=== PATIENT | female | born 2000 | race Caucasian/White ===

== ENCOUNTER 2024-03-31 04:40 | Emergency (ER) | payer MEDICAID, SELFPAY ==
[2024-03-31 04:52] VITALS: BP 139/93; PULSE 89; RESP 14; TEMP 36.8; O2SAT 100; BMI 22.6
--- NOTE | 2024-03-31 05:13 | [facility].EDGENADL ---
Discharge Plan Activity Restrictions/Add. Instructions Additional Instructions/Restrictions: Please follow-up with your primary care provider. Please return to the emergency department if you develop any new or worsening symptoms or become concerned for your health. Clinical Impressions Clinical Impression: Abdominal pain Qualifiers: Abdominal location: lower abdomen, unspecified Qualified Code(s): R10.30 - Lower abdominal pain, unspecified Print Language Print Language: Czech Discharge ED Provider: [place] French General Adult HPI General Chief complaint: PAIN Stated complaint: AO 0340 abd pain Time Seen by Provider: 03/31/24 04:50 Mode of Arrival: Ambulatory Source of Information: Patient Limitations: No Limitations Description of Symptoms (Recalled from ER Triage Doc. by RN): Patient complains of lower abdominal pain after pulling a resident up in bed. States pain is sharp and started around 3:40am. Patient is 18 weeks and is primairly concerned with the . History of Present Illness HPI narrative: 23-year-old female, currently 18 months with her second , history of type 2 diabetes, normal to this point presents for abdominal pain. 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 She denies any vaginal bleeding or crampy abdominal pain, reports it is sharp and worse with coughing or twisting. She denies any significant trauma to the abdomen, just that she was straining when it happened. [facility] Disclaimer: The information contained in this section may have been updated after the patient was seen, as this information can be updated by other users. Social History Smoking Status: Never smoker alcohol intake: never current occupational status: employed ROS Obtained: Yes All systems reviewed & no additional complaints except as documented Physical Exam General General appearance: alert and in no apparent distress Head Head exam: atraumatic and normocephalic Eye Eye exam: Present normal appearance, PERRL and EOMI ENT ENT exam: Present normal oropharynx and normal external ear exam Neck Neck exam: Present normal inspection and full ROM Chest Chest inspection: Present normal inspection and symmetric chest wall rise; Absent tenderness Respiratory Respiratory exam: Present normal lung sounds bilaterally; Absent respiratory distress Cardiovascular Cardiovascular exam: Present regular rate and normal rhythm Abdominal Exam Abdominal exam: Present soft; Absent distention, tenderness or guarding Comment: Gravid Extremities Exam Extremities exam: Present normal inspection; Absent edema or joint swelling Back Exam Back exam: Present normal inspection; Absent tenderness Neurological Exam Neurological exam: Present alert and oriented X3; Absent motor sensory deficit Psychiatric Psychiatric exam: Present normal affect and normal mood Skin Skin exam: Present warm, dry and normal color Lymphatic Lymphatic Findings: no adenopathy Medical Decision Making Medical Records Medical records reviewed: Yes I reviewed the patient's medical records. Screening: Per USPSTF and CDC recommendations, given the prevalence of disease in our region, it is our hospital?s policy to screen for HIV and viral Hepatitis for all patients aged 18 and over and those with ongoing risk factors. Kieran Inquiry Pt receiving controlled substance: No Kieran was queried for this patient: No Vital Signs: 03/31/24 04:52 03/31/24 06:06 Temperature 98.3 F 98.1 F Temperature Source Oral Oral Pulse Rate 79 Pulse Rate [Right Radial] 89 Respiratory Rate 14 20 Blood Pressure 122/74 Blood Pressure [Right Arm] 139/93 H Blood Pressure Mean [Right Arm] 108 Blood Pressure Source [Right Arm] Automatic Cuff Blood Pressure Position [Right Arm] Supine 02 Sat by Pulse Oximetry 100 Oxygen Delivery Method Room Air Room Air Lab Data Lab results reviewed: Yes I reviewed the patient's lab results. Medical Decision Narrative: 23-year-old female, G2, P1 at 18 weeks presents for mild sharp midline abdominal pain that started after she was pulling a patient in bed, worse with coughing and twisting, no vaginal bleeding, no crampy abdominal pain.. History was obtained via interactive discussion with patient. On arrival, patient is [afebrile, hemodynamically stable, satting appropriately, alert, oriented x4, GCS 15], moving all extremities spontaneously. Full physical exam performed and significant for gravid abdomen, otherwise unremarkable. heart tones in the 140s. Differential includes but is not limited to muscle strain, subchorionic hemorrhage, abruption. Given patient sustained no trauma, has had no vaginal bleeding and has a story consistent with musculoskeletal strain, I am not significantly concerned for uterine pathology at this time. I discussed this with patient and encouraged her to take Tylenol as needed for symptoms and return if she were to develop vaginal bleeding or had worsening of symptoms. Procedures Risk/Benefits of Procedure(s) Were Explained: Yes Critical Care Critical Care Time Critical Care Time: No
[2024-03-31 06:06] VITALS: BP 122/74; PULSE 79; RESP 20; TEMP 36.7; O2SAT 98
== END 2024-03-31 06:04 | disposition home or self-care (01) ==
LOC: ER 06:11
PROVIDERS: Emergency Provider Emergency Medicine
DX: R10.30 Lower abdominal pain, unspecified (principal)
CPT/HCPCS: 99281